=== PATIENT | female | born 1990 | race Caucasian/White ===

== ENCOUNTER 2016-12-06 11:30 | Emergency (ER) | payer OTHER ==
[~2016-12-06] VITALS: Ht 162.6 cm; Wt 68.5 kg
[~2016-12-06 11:30] MED LIST: AFRIN,GENASAL D15 ML BOTH NARES; AMOXICILLIN PO; AMOXICILLIN500 M1; ANTIVERT25 MG PO; ASPIR-LOW81 MG; Ascorbic Acid,Ester- PO; BENICAR20 MG; BIRTH CONTROL; Benadryl PO; CELEXA20 MG PO; DILAUDID2 MG PO; ERYTHROMYC1 APPLICAT RIGHT EYE; FIORICET 50-301 EACH PO; IMPLANON68 MG SQ; KEFLEX500 MG PO; LOVENOX30 MG/0.3 SC; MOTRIN800 MG PO; NAPROSYN500 MG PO; NAPROXEN500 MG PO; NATALCARE RX1 TABLE1 PO; NEXPLANON68 MG SC; NOHOMEMEDS; OMEPRAZOLE40 M1 PO; OXYCONTIN20 MG PO; PLAVIX75 MG PO; PREDNISONE10 M1 PO; PREDNISONE20 MG PO; PREMARIN0.625 MG; PROMETHAZINE HC25 M1 PO; Phenergan PO; REGLAN10 MG PO; REGLAN5 MG PO; SIMVASTATIN40 MG; SINGULAIR10 MG PO; TOPROL XL50 MG PO; TYLENOL REGULA325 MG PO; ULTRAM50 MG PO; VENTOLIN HFA18 GM IH; VICODIN,LORT1 TABLET PO; VOLTAREN-XR100 MG PO; WELLBUTRIN XL300 MG PO; ZITHROMAX Z-PA250 MG PO; ZOFRAN4 MG PO; ZOLOFT50 M1 PO
[2016-12-06] MEDS ORDERED: MOTRIN600 MG PO (13:52)
[2016-12-06] MEDS ORDERED: LORTAB 5-325 M1 EACH PO (13:52)
[2016-12-06 14:10] VITALS: BP 113/81
== END 2016-12-06 14:18 | disposition home or self-care (01) ==
LOC: EME 11:30
PROC: 2W3EX1Z Immobilization of Right Hand using Splint (ICD-10-PCS; principal; 2016-12-06)
DX: S60.221A Contusion of right hand, initial encounter (principal); W22.8XXA Striking against or struck by other objects, initial encounter; Y93.83 Activity, rough housing and horseplay
CPT/HCPCS: 73140; 99281; 99283

== ENCOUNTER 2017-07-05 19:42 | Emergency (ER) | payer OTHER ==
[~2017-07-05] VITALS: Ht 162.6 cm; Wt 68.8 kg
[~2017-07-05 19:42] MED LIST changes: +LORTAB 5-325 M1 EACH PO; +MOTRIN600 MG PO
[2017-07-05] MEDS ORDERED: OCUFLOX 0.100 DROP/5 LEFT EYE (22:11)
[2017-07-05 22:23] VITALS: BP 101/73
== END 2017-07-05 22:24 | disposition home or self-care (01) ==
LOC: EME 19:42
DX: H10.32 Unspecified acute conjunctivitis, left eye (principal)
CPT/HCPCS: 99281; 99284

== ENCOUNTER 2017-07-08 18:10 | Emergency (ER) | payer OTHER ==
[~2017-07-08] VITALS: Ht 162.6 cm; Wt 68.1 kg
[~2017-07-08 18:10] MED LIST changes: +OCUFLOX 0.100 DROP/5 LEFT EYE
[2017-07-08 19:57] VITALS: BP 100/59
== END 2017-07-08 20:00 | disposition home or self-care (01) ==
LOC: EME 18:10
DX: G43.909 Migraine, unspecified, not intractable, without status migrainosus (principal); B30.9 Viral conjunctivitis, unspecified; Z88.5 Allergy status to narcotic agent
CPT/HCPCS: 99281; 99284; J0780; J1200; J1885; J7030

== ENCOUNTER 2017-11-14 14:56 | Inpatient (IN) | payer OTHER ==
[~2017-11-14] VITALS: Ht 162.6 cm; Wt 73.1 kg
[2017-11-14 15:44] LABS: HEMATOCRIT 39.3 % (36.0-46.0); HEMOGLOBIN 13.7 G/DL (11.9-15.5); MCH 31.6 PG (29.0-34.0); MCHC 34.9 G/DL (30.0-36.0); MCV 90.8 FL (83-99); PLATELET COUNT 232 K/uL (156-360); RBC DIS.WIDTH-CV 11.6 % (11.8-14.6); RBC DIS.WIDTH-SD 38.4 % (39-53); RED BLOOD COUNT 4.33 M/uL (3.80-5.20); WHITE BLOOD COUNT 25.3 K/uL (4.1-10.2)
[2017-11-14 15:52] LABS: ALBUMIN 4.2 g/dL (3.2-4.8); CHLORIDE 103 mEq/L (99-109); POTASSIUM 4.3 mEq/L (3.7-5.4); SODIUM 138 mEq/L (136-147)
[2017-11-14 15:54] LABS: GLUCOSE 129 mg/dL (70-99)
[2017-11-14 15:55] LABS: TOTAL PROTEIN 7.8 g/dL (6.4-8.3)
[2017-11-14 15:56] LABS: TOTAL BILIRUBIN 2.2 mg/dL (0.0-1.0)
[2017-11-14 15:58] LABS: ALKALINE PHOSPHATASE 133 IU/L (3-129); CREATININE 0.9 mg/dL (0.6-1.3); GFR ESTIMATE (CALCULATED) > 59 mL/min/
[2017-11-14 15:59] LABS: UREA NITROGEN (BUN) 10 mg/dL (9-23)
[2017-11-14 16:00] LABS: AST (GOT) 16 IU/L (2-34)
[2017-11-14 16:01] LABS: ALT (GPT) 22 IU/L (3-49)
[2017-11-14 16:07] LABS: QUANTITATIVE HCG < 4.0 MIU/ML
[2017-11-14 17:49] LABS: APPEARANCE CLOUDY ((CLEAR)); BILIRUBIN NEGATIVE; BLOOD MODERATE; COLOR YELLOW ((YELLOW)); GLUCOSE (STRIP) NEGATIVE; KETONES NEGATIVE; LEUKOCYTES MODERATE; NITRITE POSITIVE; PROTEIN (STRIP) 100; UROBILINOGEN 0.2 MG/DL (0.2-1.0)
[2017-11-14 17:55] LABS: BACTERIA RARE /HPF; EPITHELIAL CELLS 1+ /HPF; MUCUS TRACE /LPF; RED BLOOD CELLS 20-30 /HPF (0-5); UCUL ADDED? YES; WHITE BLOOD CELLS TNTC /HPF (0-5)
[2017-11-14] MEDS ORDERED: PERCOCET 10/1 TABLET PO (18:13)
[2017-11-14] MEDS ORDERED: MELOXICAM15 MG PO (18:13)
[2017-11-14] MEDS ORDERED: FLONASE ALLERG9.9 ML BOTH NARES (18:13)
[2017-11-14] MEDS ORDERED: MORPHINE SULFAT15 M1 PO (18:13)
[2017-11-14] MEDS ORDERED: LYRICA100 MG PO (18:13)
[2017-11-14 22:10] VITALS: BP 149/81
[2017-11-14 23:04] VITALS: BP 105/53
[2017-11-15] VITALS (7 sets, daily range): BP systolic 80–113; BP diastolic 44–64
[2017-11-15 06:51] LABS: BASOPHIL (%) 0.2 % (0-1); EOSINOPHIL (%) 0 % (0-5); HEMATOCRIT 30.3 % (36.0-46.0); LYMPHOCYTE (%) 6.4 % (15-42); LYMPHOCYTE COUNT 1.1 K/uL (1.0-2.8); MCH 30.3 PG (29.0-34.0); MCHC 33.3 G/DL (30.0-36.0); MONOCYTE (%) 7.6 % (3-12); MONOCYTE COUNT 1.3 K/uL (0-0.8); NEUTROPHIL (%) 84.8 % (45-76); NEUTROPHIL COUNT 14.9 K/uL (1.8-6.4); PLATELET COUNT 170 K/uL (156-360); RBC DIS.WIDTH-CV 11.8 % (11.8-14.6); RBC DIS.WIDTH-SD 39.8 % (39-53); WHITE BLOOD COUNT 17.5 K/uL (4.1-10.2)
[2017-11-15 06:53] LABS: HEMOGLOBIN 10.1 G/DL (11.9-15.5); RED BLOOD COUNT 3.33 M/uL (3.80-5.20)
[2017-11-15 06:58] LABS: CHLORIDE 106 MEQ/L (99-109); CREATININE 0.8 MG/DL (0.6-1.3); GFR ESTIMATE (CALCULATED) > 59 mL/min/; GLUCOSE 179 mg/dL (70-99); POTASSIUM 3.7 MEQ/L (3.7-5.4); SODIUM 135 MEQ/L (136-147); UREA NITROGEN (BUN) 8 mg/dL (9-23)
[2017-11-16 04:16] VITALS: BP 100/54
[2017-11-16 07:52] VITALS: BP 103/54
[2017-11-16 13:28] VITALS: BP 109/66
[2017-11-16 14:24] LABS: CHLORIDE 114 MEQ/L (99-109); POTASSIUM 3.8 MEQ/L (3.7-5.4); SODIUM 141 MEQ/L (136-147)
[2017-11-16 14:29] LABS: CREATININE 0.7 MG/DL (0.6-1.3); GFR ESTIMATE (CALCULATED) > 59 mL/min/; GLUCOSE 122 mg/dL (70-99); UREA NITROGEN (BUN) 4 mg/dL (9-23)
[2017-11-16 15:35] LABS: HEMATOCRIT 28.8 % (36.0-46.0); HEMOGLOBIN 9.4 G/DL (11.9-15.5); MCH 30.2 PG (29.0-34.0); MCHC 32.6 G/DL (30.0-36.0); MCV 92.6 FL (83-99); PLATELET COUNT 159 K/uL (156-360); RBC DIS.WIDTH-CV 11.9 % (11.8-14.6); RBC DIS.WIDTH-SD 40.4 % (39-53); RED BLOOD COUNT 3.11 M/uL (3.80-5.20); WHITE BLOOD COUNT 11.1 K/uL (4.1-10.2)
[2017-11-16 16:01] VITALS: BP 115/62
[2017-11-16 19:37] VITALS: BP 124/59
[2017-11-16 23:59] VITALS: BP 119/77
[2017-11-17 03:14] VITALS: BP 114/65
[2017-11-17 07:59] LABS: HEMATOCRIT 34.5 % (36.0-46.0); HEMOGLOBIN 11.2 G/DL (11.9-15.5); MCH 30.3 PG (29.0-34.0); MCHC 32.5 G/DL (30.0-36.0); MCV 93.2 FL (83-99); PLATELET COUNT 199 K/uL (156-360); RBC DIS.WIDTH-CV 11.8 % (11.8-14.6); RBC DIS.WIDTH-SD 39.9 % (39-53)
[2017-11-17 08:30] LABS: ALBUMIN 3.1 G/DL (3.2-4.8); ALKALINE PHOSPHATASE 178 IU/L (3-129); ALT (GPT) 23 IU/L (3-49); AST (GOT) 26 IU/L (2-34); CHLORIDE 110 MEQ/L (99-109); CREATININE 0.7 MG/DL (0.6-1.3); GFR ESTIMATE (CALCULATED) > 59 mL/min/; POTASSIUM 3.9 MEQ/L (3.7-5.4); SODIUM 139 MEQ/L (136-147); TOTAL PROTEIN 5.5 G/DL (6.4-8.3); UREA NITROGEN (BUN) 4 mg/dL (9-23)
[2017-11-17 08:31] LABS: GLUCOSE 85 mg/dL (70-99)
[2017-11-17 08:58] VITALS: BP 129/62
[2017-11-17 11:22] VITALS: BP 113/75
[2017-11-17 16:13] VITALS: BP 127/66
[2017-11-17 19:52] VITALS: BP 117/71
[2017-11-18 00:18] VITALS: BP 125/59
[2017-11-18 04:54] VITALS: BP 121/71
[2017-11-18 07:55] VITALS: BP 105/58
[2017-11-18 08:47] LABS: HEMATOCRIT 28.2 % (36.0-46.0); HEMOGLOBIN 9.5 G/DL (11.9-15.5); MCH 30.7 PG (29.0-34.0); MCHC 33.7 G/DL (30.0-36.0); MCV 91.3 FL (83-99); RBC DIS.WIDTH-CV 12.1 % (11.8-14.6); RBC DIS.WIDTH-SD 40.4 % (39-53); RED BLOOD COUNT 3.09 M/uL (3.80-5.20); WHITE BLOOD COUNT 7.5 K/uL (4.1-10.2)
[2017-11-18 09:21] LABS: ALBUMIN 2.8 G/DL (3.2-4.8); ALKALINE PHOSPHATASE 171 IU/L (3-129); ALT (GPT) 19 IU/L (3-49); AST (GOT) 17 IU/L (2-34); CHLORIDE 112 MEQ/L (99-109); CREATININE 0.7 MG/DL (0.6-1.3); GFR ESTIMATE (CALCULATED) > 59 mL/min/; GLUCOSE 121 mg/dL (70-99); POTASSIUM 3.5 MEQ/L (3.7-5.4); SODIUM 143 MEQ/L (136-147); TOTAL PROTEIN 5.1 G/DL (6.4-8.3); UREA NITROGEN (BUN) 2 mg/dL (9-23)
[2017-11-18 09:22] LABS: TOTAL BILIRUBIN 0.4 MG/DL (0.0-1.0)
[2017-11-18 09:28] LABS: HEMATOLOGY COMMENT 1 UNABLE TO REPORT; PLATELET COUNT UNABLE TO REPORT K/uL (156-360)
[2017-11-18] MEDS ORDERED: BACTRIM,SEPT1 TABLET PO (09:58)
[2017-11-18] MEDS ORDERED: MORPHINE SULFAT15 M1 PO (09:59)
[2017-11-18] MEDS ORDERED: PERCOCET 10/1 TABLET PO (09:59)
== END 2017-11-18 11:50 | disposition home or self-care (01) | DRG 694 ==
LOC: EME 14:56 → EDOF 19:05 → ENRESERV 19:06 → 5WEST 22:01 → EDOF 22:15 → ENRESERV 22:16 → 5WEST 22:54 → ENPENDDIS 11-18 → 5WEST 11-18 11:50
PROVIDERS: Internal Medicine; Nurse Practitioner Family
DX: N20.0 Calculus of kidney (principal); R17 Unspecified jaundice; R09.02 Hypoxemia; G89.29 Other chronic pain; E86.9 Volume depletion, unspecified; R00.0 Tachycardia, unspecified; R74.8 Abnormal levels of other serum enzymes; J32.3 Chronic sphenoidal sinusitis; J45.909 Unspecified asthma, uncomplicated; J98.11 Atelectasis; K21.9 Gastro-esophageal reflux disease without esophagitis; Z85.3 Personal history of malignant neoplasm of breast; Z85.820 Personal history of malignant melanoma of skin
CPT/HCPCS: 70450; 70486; 74176; 80048; 80053; 81003; 83605; 84702; 85025; 85027; 87040; 87086; 94799; 99281; 99285; G0378; J0696; J1200; J1885; J2765; J3030; J7030

== ENCOUNTER 2017-12-16 22:36 | Emergency (ER) | payer OTHER ==
[~2017-12-16 22:36] MED LIST changes: +BACTRIM,SEPT1 TABLET PO; +FLONASE ALLERG9.9 ML BOTH NARES; +LYRICA100 MG PO; +MELOXICAM15 MG PO; +MORPHINE SULFAT15 M1 PO; +PERCOCET 10/1 TABLET PO
[2017-12-16 22:52] LABS: BASOPHIL (%) 0.4 % (0-1); BASOPHIL COUNT 0.1 K/uL (0-0.1); EOSINOPHIL (%) 1.3 % (0-5); EOSINOPHIL COUNT 0.2 K/uL (0-0.3); HEMATOCRIT 33.4 % (36.0-46.0); IMMATURE GRANULOCYTE (%) 0.4 % (0.0-0.7); LYMPHOCYTE (%) 22.2 % (15-42); LYMPHOCYTE COUNT 2.5 K/uL (1.0-2.8); MCH 30.7 PG (29.0-34.0); MCHC 34.7 G/DL (30.0-36.0); MCV 88.4 FL (83-99); MONOCYTE COUNT 0.6 K/uL (0-0.8); NEUTROPHIL (%) 70.7 % (45-76); NEUTROPHIL COUNT 8.1 K/uL (1.8-6.4); RBC DIS.WIDTH-CV 12.8 % (11.8-14.6); RBC DIS.WIDTH-SD 41.1 % (39-53); WHITE BLOOD COUNT 11.4 K/uL (4.1-10.2)
[2017-12-16 22:53] LABS: HEMOGLOBIN 11.6 G/DL (11.9-15.5); PLATELET COUNT 175 K/uL (156-360); RED BLOOD COUNT 3.78 M/uL (3.80-5.20)
[2017-12-16 22:58] LABS: AMYLASE 32 IU/L (1-118); CHLORIDE 105 mEq/L (99-109); POTASSIUM 3.7 mEq/L (3.7-5.4); SODIUM 137 mEq/L (136-147)
[2017-12-16 23:00] LABS: GLUCOSE 106 mg/dL (70-99)
[2017-12-16 23:03] LABS: CREATININE 0.8 mg/dL (0.6-1.3); GFR ESTIMATE (CALCULATED) > 59 mL/min/; SERUM ETHYL ALCOHOL < 10 mg/dL
[2017-12-16 23:04] LABS: UREA NITROGEN (BUN) 6 mg/dL (9-23)
[2017-12-16 23:06] LABS: LIPASE 20 U/L (1.0-51.0)
[2017-12-16 23:12] LABS: QUANTITATIVE HCG < 4.0 MIU/ML
[2017-12-16 23:31] LABS: APPEARANCE CLEAR ((CLEAR)); BILIRUBIN NEGATIVE; BLOOD SMALL; COLOR YELLOW ((YELLOW)); GLUCOSE (STRIP) NEGATIVE; KETONES NEGATIVE; LEUKOCYTES LARGE; NITRITE NEGATIVE; PROTEIN (STRIP) NEGATIVE; SPECIFIC GRAVITY 1.006 (1.000-1.030); UROBILINOGEN 0.2 MG/DL (0.2-1.0)
[2017-12-16 23:36] LABS: BACTERIA NONE SEEN /HPF; EPITHELIAL CELLS RARE /HPF; MUCUS TRACE /LPF; RED BLOOD CELLS 15-20 /HPF (0-5); UCUL ADDED? YES; WHITE BLOOD CELLS 15-20 /HPF (0-5)
[2017-12-16 23:41] LABS: AMPHETAMINE PRESUMPTIVE POSITIVE (500 ng/mL); BARBITURATES NEGATIVE (200 ng/mL); BENZODIAZEPINES NEGATIVE (150 ng/mL); BUPRENORPHINE NEGATIVE (10 ng/mL); COCAINE PRESUMPTIVE POSITIVE (150 ng/mL); METHADONE NEGATIVE (200 ng/mL); METHAMPHETAMINE NEGATIVE (500 ng/mL); OPIATES (MORPHINE) PRESUMPTIVE POSITIVE (100 ng/mL); OXYCODONE PRESUMPTIVE POSITIVE (100 ng/mL); PHENCYCLIDINE NEGATIVE (25 ng/mL); PROPOXYPHENE NEGATIVE (300 ng/mL); THC CANNABINOIDS NEGATIVE (50 ng/mL); TRICYCLIC ANTIDEPRESSANTS NEGATIVE (300 ng/mL)
[2017-12-17] MEDS ORDERED: AUGMENTIN875 MG PO (00:23)
[2017-12-17] MEDS ORDERED: PROVENTIL HFA6.7 GM IH (02:19)
[2017-12-17] MEDS ORDERED: PYRIDIUM100 MG PO (02:19)
== END 2017-12-17 03:28 | disposition home or self-care (01) ==
LOC: TRA 22:36
PROVIDERS: Emergency Medicine
DX: S80.01XA Contusion of right knee, initial encounter (principal); S50.02XA Contusion of left elbow, initial encounter; M79.641 Pain in right hand; V47.5XXA Car driver injured in collision with fixed or stationary object in traffic accident, initial encounter; Y92.410 Unspecified street and highway as the place of occurrence of the external cause; J18.9 Pneumonia, unspecified organism; N12 Tubulo-interstitial nephritis, not specified as acute or chronic; F19.10 Other psychoactive substance abuse, uncomplicated; K21.9 Gastro-esophageal reflux disease without esophagitis; J45.909 Unspecified asthma, uncomplicated; Z88.5 Allergy status to narcotic agent; Z88.6 Allergy status to analgesic agent
CPT/HCPCS: 70450; 71045; 71260; 72125; 72129; 72132; 73070; 73080; 73120; 73560; 74177; 80048; 81003; 82150; 83605; 83690; 84702; 84999; 85025; 86850; 86900; 86901; 87040; 87077; 87086; 99281; 99285; G0480; J0696; J2405; J3010; J7030

== ENCOUNTER 2017-12-21 03:58 | Inpatient (IN) | payer OTHER ==
[~2017-12-21] VITALS: Ht 162.6 cm; Wt 71.5 kg
[~2017-12-21 03:58] MED LIST changes: +AUGMENTIN875 MG PO; +PROVENTIL HFA6.7 GM IH; +PYRIDIUM100 MG PO
[2017-12-21 04:41] LABS: CARBON DIOXIDE (BICARBONATE) 27.3 MEQ/L (20-31)
[2017-12-21 04:43] LABS: HEMATOCRIT 30.9 % (36.0-46.0); HEMOGLOBIN 10.6 G/DL (11.9-15.5); MCH 30.6 PG (29.0-34.0); MCHC 34.3 G/DL (30.0-36.0); MCV 89.3 FL (83-99); PLATELET COUNT 178 K/uL (156-360); RBC DIS.WIDTH-CV 12.7 % (11.8-14.6); RBC DIS.WIDTH-SD 41.2 % (39-53); RED BLOOD COUNT 3.46 M/uL (3.80-5.20); WHITE BLOOD COUNT 7.8 K/uL (4.1-10.2)
[2017-12-21 04:52] LABS: D-DIMER ELISA < 150.00 ng/mLDDU (<230)
[2017-12-21 04:53] LABS: CHLORIDE 111 mEq/L (99-109); POTASSIUM 3.3 mEq/L (3.7-5.4)
[2017-12-21 04:54] LABS: SODIUM 144 mEq/L (136-147)
[2017-12-21 04:55] LABS: GLUCOSE 112 mg/dL (70-99)
[2017-12-21 04:58] LABS: CREATININE 0.8 mg/dL (0.6-1.3); GFR ESTIMATE (CALCULATED) > 59 mL/min/
[2017-12-21 04:59] LABS: UREA NITROGEN (BUN) 6 mg/dL (9-23)
[2017-12-21 05:08] LABS: TROP-I INTERPRETATION NEGATIVE; TROPONIN-I < 0.01 ng/mL (0.0-0.30)
[2017-12-21] MEDS ORDERED: AUGMENTIN875 MG PO (08:44)
[2017-12-21] MEDS ORDERED: PROAIR HFA8.5 GM IH (08:44)
[2017-12-21] MEDS ORDERED: PYRIDIUM100 MG PO (08:45)
[2017-12-21 10:04] VITALS: BP 109/58
[2017-12-21 11:10] LABS: TROP-I INTERPRETATION NEGATIVE; TROPONIN-I < 0.01 ng/mL (0.0-0.30)
[2017-12-21 16:52] VITALS: BP 111/87
[2017-12-21 20:23] VITALS: BP 116/75
[2017-12-21 21:18] LABS: APPEARANCE CLEAR ((CLEAR)); BILIRUBIN NEGATIVE; BLOOD NEGATIVE; COLOR YELLOW ((YELLOW)); GLUCOSE (STRIP) NEGATIVE; KETONES NEGATIVE; LEUKOCYTES LARGE; NITRITE NEGATIVE; PROTEIN (STRIP) NEGATIVE; SPECIFIC GRAVITY 1.013 (1.000-1.030); UROBILINOGEN 0.2 MG/DL (0.2-1.0)
[2017-12-21 21:31] LABS: BACTERIA RARE /HPF; EPITHELIAL CELLS RARE /HPF; MUCUS TRACE /LPF; UCUL ADDED? YES; WHITE BLOOD CELLS TNTC /HPF (0-5)
[2017-12-21 21:40] LABS: BENZODIAZEPINES, URINE SCREEN Negative (200 ng/mL)
[2017-12-22 00:21] VITALS: BP 115/64
[2017-12-22 04:26] VITALS: BP 98/55
[2017-12-22 05:29] LABS: HEMATOCRIT 33.4 % (36.0-46.0); MCHC 32.9 G/DL (30.0-36.0); PLATELET COUNT 231 K/uL (156-360); RBC DIS.WIDTH-CV 13.2 % (11.8-14.6); RED BLOOD COUNT 3.67 M/uL (3.80-5.20); WHITE BLOOD COUNT 9.2 K/uL (4.1-10.2)
[2017-12-22 05:49] LABS: CHLORIDE 108 MEQ/L (99-109); CREATININE 0.7 MG/DL (0.6-1.3); GFR ESTIMATE (CALCULATED) > 59 mL/min/; GLUCOSE 140 mg/dL (70-99); POTASSIUM 3.9 MEQ/L (3.7-5.4); SODIUM 139 MEQ/L (136-147); UREA NITROGEN (BUN) 6 mg/dL (9-23)
[2017-12-22 09:00] VITALS: BP 110/70
[2017-12-22] MEDS ORDERED: CEFDINIR300 MG PO (09:31)
[2017-12-22] MEDS ORDERED: PREDNISONE20 MG PO (09:31)
[2017-12-22] MEDS ORDERED: AZITHROMYCIN500 M1 PO (09:32)
[2017-12-22 11:15] VITALS: BP 126/66
== END 2017-12-22 12:53 | disposition home or self-care (01) | DRG 194 ==
LOC: EME 03:58 → EDOF 06:06 → 4SOUTH 06:06 → CANRESERV 06:08 → ENRESERV 06:08 → 4SOUTH 10:02
PROVIDERS: Emergency Medicine; Hospitalist
DX: J18.9 Pneumonia, unspecified organism (principal); J45.901 Unspecified asthma with (acute) exacerbation; R94.31 Abnormal electrocardiogram [ECG] [EKG]; F14.10 Cocaine abuse, uncomplicated; F15.10 Other stimulant abuse, uncomplicated; F12.10 Cannabis abuse, uncomplicated; K21.9 Gastro-esophageal reflux disease without esophagitis; G89.29 Other chronic pain; M54.5 Low back pain; R42 Dizziness and giddiness; Z79.891 Long term (current) use of opiate analgesic; Z80.3 Family history of malignant neoplasm of breast; Z85.820 Personal history of malignant melanoma of skin
CPT/HCPCS: 71045; 80048; 80306 90; 81003; 82803; 82948; 83605; 83880; 84484; 85027; 85379; 87040; 87086; 93005; 94640; 94640 76; 99202; 99281; 99284; J0456; J0696; J1650; J7512; J7644

== ENCOUNTER 2018-01-04 15:35 | Emergency (ER) | payer OTHER ==
[~2018-01-04] VITALS: Ht 162.6 cm; Wt 72.0 kg
[~2018-01-04 15:35] MED LIST changes: +AZITHROMYCIN500 M1 PO; +CEFDINIR300 MG PO; +PROAIR HFA8.5 GM IH
[2018-01-04 16:45] LABS: APPEARANCE SL.HAZY ((CLEAR)); BILIRUBIN NEGATIVE; BLOOD SMALL; COLOR YELLOW ((YELLOW)); GLUCOSE (STRIP) NEGATIVE; KETONES NEGATIVE; LEUKOCYTES LARGE; NITRITE NEGATIVE; PROTEIN (STRIP) 30; SPECIFIC GRAVITY 1.014 (1.000-1.030); UROBILINOGEN 0.2 MG/DL (0.2-1.0)
[2018-01-04 16:58] LABS: BACTERIA RARE /HPF; CALCIUM OXALATE CRYSTALS 1+ /HPF; EPITHELIAL CELLS 1+ /HPF; MUCUS TRACE /LPF; RED BLOOD CELLS 15-20 /HPF (0-5); UCUL ADDED? YES; WHITE BLOOD CELLS 30-40 /HPF (0-5)
[2018-01-04] MEDS ORDERED: VOLTAREN 1% GE100 GM TP (19:02)
[2018-01-04] MEDS ORDERED: KEFLEX500 MG PO (19:06)
[2018-01-04 19:11] VITALS: BP 118/77
== END 2018-01-04 19:12 | disposition home or self-care (01) ==
LOC: EME 15:35
PROVIDERS: Physician Assistant
DX: S30.0XXA Contusion of lower back and pelvis, initial encounter (principal); W19.XXXA Unspecified fall, initial encounter; N39.0 Urinary tract infection, site not specified; N83.201 Unspecified ovarian cyst, right side
CPT/HCPCS: 72070; 72100; 74176; 81003; 81025; 87086; 99281; 99284

== ENCOUNTER 2018-01-20 21:08 | Emergency (ER) | payer OTHER ==
[~2018-01-20] VITALS: Ht 162.6 cm; Wt 71.1 kg
[~2018-01-20 21:08] MED LIST changes: +VOLTAREN 1% GE100 GM TP
[2018-01-20 23:41] VITALS: BP 110/69
== END 2018-01-20 23:42 | disposition home or self-care (01) ==
LOC: EME 21:08
DX: S60.221A Contusion of right hand, initial encounter (principal); S00.03XA Contusion of scalp, initial encounter; W21.07XA Struck by softball, initial encounter; Y93.64 Activity, baseball; Z88.5 Allergy status to narcotic agent
CPT/HCPCS: 73130; 99281; 99283

== ENCOUNTER 2018-04-06 21:11 | Emergency (ER) | payer OTHER ==
[~2018-04-06] VITALS: Ht 162.6 cm; Wt 71.6 kg
[2018-04-06] MEDS ORDERED: MOTRIN800 MG PO (23:20)
[2018-04-06] MEDS ORDERED: NORCO 7.5/321 TABLET PO (23:20)
[2018-04-06 23:52] VITALS: BP 129/96
== END 2018-04-06 23:53 | disposition home or self-care (01) ==
LOC: EME 21:11
DX: M76.51 Patellar tendinitis, right knee (principal); M76.52 Patellar tendinitis, left knee; Z88.5 Allergy status to narcotic agent
CPT/HCPCS: 99281; 99284